=== PATIENT | female | born 1980 | race Caucasian/White ===

== ENCOUNTER 2023-04-20 12:35 | Emergency (ER) | payer MEDICAID, SELFPAY ==
[2023-04-20 12:45] VITALS: BP 128/92; PULSE 123; RESP 20; TEMP 36.7; O2SAT 97; BMI 29.5
--- NOTE | 2023-04-20 13:09 | ED.NAVMDI1 ---
HPI - Nausea/Vomiting/Diarrhea General Chief complaint: Nausea/Vomiting/Diarrhea Stated complaint: NAUSEA/THROWING UP SINCE APPROX. 6 AM/STOMACH PAIN Time Seen by Provider: 04/20/23 12:58 Source: patient Mode of arrival: walk-in Limitations: no limitations History of Present Illness HPI Narrative: Patient is a 42-year-old female who presents to the Emergency Room with concerns of nausea and vomiting. Patient states she feels she gets this way after she drinks [place]. Patient admits to history of marijuana abuse and is had hyperemesis from marijuana use in the past and she is trying to cut back. She denies any bad food. Denies any fevers. States she awoke at 6 AM with nausea vomiting and a few bouts of diarrhea. She denies any fevers or chills. She has had prior hysterectomy. She denies dysuria. Patient states she last had similar symptoms about three years ago. Patient appears nauseous, actively vomiting into an emesis basin. MD elicited complaint: Reports nausea, vomiting, diarrhea and abdominal pain Related Data Allergies Allergy/AdvReac Type Severity Reaction Status Date / Time No Known Drug Allergies Allergy Verified 04/20/23 12:44 Review of Systems ROS Constitutional Denies: fever or chills Eyes Denies: change in vision Ears, nose, mouth, and throat Denies: throat pain Cardiovascular Denies: chest pain or palpitations Respiratory Denies: shortness of breath, cough or wheezing Gastrointestinal Reports: abdominal pain, nausea, vomiting and diarrhea Genitourinary Denies: painful urination or urinary frequency Integumentary/Breast Denies: rash Neurological Denies: headache PFSH PFSH Social History Smoking status: Former smoker Exam Narrative Exam Narrative: Nurses notes and vital signs reviewed and patient is not hypoxic. General: The patient appears uncomfortable sitting up with active dry heaves, minimal green emesis noted, no evidence of coffee grounds or blood Skin: Warm, dry, no pallor noted. Head: Normocephalic, atraumatic Neck: Supple, trachea mid-line, no tenderness, no lymphadenopathy Eye: Pupils are equal, round and reactive to light, EOMI Ears, Nose, Mouth, and Throat: TM are clear, normal light reflex, oral mucosa is moist, no posterior oropharynx erythema or hypertrophy, uvula is mid-line Cardiovascular: Regular Rate and Rhythm Respiratory: Patient is in no distress, no accessory muscle use, lungs are clear to auscultation, no wheezing, rales or rhonchi. Chest Wall: no tenderness Back: non-tender, no CVA tenderness Musculoskeletal: normal ROM, no tenderness, no swelling GI: Normal bowel sounds, no tenderness to palpation, generalized soreness but no focal tenderness on deep palpation. No masses appreciated. No rebound, guarding, or rigidity noted. Neurological: A&O x4 Psychiatric: Cooperative Constitutional Vital Signs, click to edit/add: Last Vital Signs Temp 98.8 F 04/20/23 15:05 Pulse 97 H 04/20/23 15:05 Resp 16 04/20/23 15:05 BP 129/73 04/20/23 15:05 Pulse Ox 97 04/20/23 12:45 O2 Del Method Room Air 04/20/23 13:38 Course Vital Signs Vital signs: Vital Signs Temperature 98.1 F 04/20/23 12:45 Pulse Rate 123 H 04/20/23 12:45 Respiratory Rate 20 04/20/23 12:45 Blood Pressure 128/92 H 04/20/23 12:45 Pulse Oximetry 97 04/20/23 12:45 Temperature 98.8 F 04/20/23 15:05 Pulse Rate 97 H 04/20/23 15:05 Respiratory Rate 16 04/20/23 15:05 Blood Pressure 129/73 04/20/23 15:05 Pulse Oximetry 97 04/20/23 12:45 Oxygen Delivery Method Room Air 04/20/23 13:38 MDM - Nausea/Vomiting/Diarrhea MDM Narrative Medical decision making narrative: Patient presents with acute onset nausea vomiting and diarrhea. Denies any one else ill in her home. Admit she has had similar symptoms with marijuana abuse in the past but has been cutting back and last smoked two days ago. She denies any other drug use or alcohol abuse. Patient denies fevers or chills. Patient agreeable to IV fluids, laboratory studies and medications for her symptoms. She is given Phenergan 25 mg IM and 4 mg IV Zofran. 2.5 mg IV Haldol. Zofran was switched to 8 milligrams by mouth. Multiple attempts for peripheral IV started unsuccessful, patient had 18-gauge placed by myself under ultrasound guidance in the right distal humerus. Patient admits to being a fire once Emergency Room earlier today but left after seen multiple patients Kobak before her with similar appearing symptoms. When we called the facility they reported nine visits to the Emergency Room for same symptoms within the past month. Patient admits to this at bedside stating that held all has helped her symptoms in the past. He admits previous admission was for hypokalemia from repetitive vomiting. Patient reevaluated, discussed laboratory studies, slight elevation of lactate and white blood cell count. Discussed leukocytosis likely with repetitive nausea and vomiting. Abdomen nonsurgical. Patient states she is scheduled to see a gastrointestinal specialist in June, she will contact her PCP to discuss moving up this appointment given her multiple Emergency Room visits. Patient admits to feeling better and has not vomited but is requesting additional dose of Haldol prior to discharge. Patient states she has Phenergan and Compazine at home and verbalized that she needs to stop smoking marijuana for her symptoms to improve. We discussed that she may have other pathology based on her CT scan and the need for definitive gastrointestinal evaluation was discussed. Patient agrees to return to the Emergency Room if symptoms worsen or new symptoms develop. Patient verbalized understanding she's had multiple Emergency Room visits occasionally with electrolyte imbalances and this is of concern regarding her recurrent situation. Patient was monitored on the bus monitor with Haldol use. With IV fluid bolus. 97bpm The patient is to followup with primary care physician in next 2-3 days or to return to the emergency department should any of the signs or symptoms worsen or new symptoms develop. Patient had questions answered. The patient agrees with the following Diagnosis and Treatment plan and the patient will be discharged home. Medical Records Medical records narrative: Reviewed [facility] once Emergency Room visit laboratory studies from 04/18/23. Patient has stool cultures pending, CT abdomen and pelvis from shows wall thickening of the entire colon with fatty infiltrative changes in the wall, consider chronic inflammatory changes. May consider component of mild colitis versus underdistention. Colonic diverticulosis without diverticulitis. Small stable hepatic hypodensities noted as tiny cyst. Patient has documented follow-up to gastrointestinal specialist. Lab Data Labs: Lab Results 04/20/23 Range/Units 13:38 WBC 13.0 H (4.0-11.0) 10^3/uL RBC 4.85 (4.20-5.40) 10^6/uL Hgb 14.4 (12.0-16.0) g/dL Hct 42.9 (36.0-48.0) % MCV 88.5 (81.0-99.0) fL MCH 29.7 (26.7-34.0) pg MCHC 33.6 (29.9-35.2) g/dL RDW 13.5 (11.0-15.0) % Plt Count 281 (150-450) 10^3/uL MPV 11.1 (9.5-13.5) fL Neut % (Auto) 93.1 H (43.0-75.0) % Lymph % (Auto) 4.1 L (20.5-60.0) % [place] % (Auto) 2.2 (1.7-12.0) % Eos % (Auto) 0.0 L (0.9-7.0) % Baso % (Auto) 0.2 (0.2-2.0) % Neut # (Auto) 12.1 H (1.4-6.5) 10^3/uL Lymph # (Auto) 0.5 L (1.2-3.8) 10^3/uL [place] # (Auto) 0.3 (0.3-0.8) 10^3/uL Eos # (Auto) 0.0 (0.0-0.7) 10^3/uL Baso # (Auto) 0.0 (0.0-0.1) 10^3/uL Abs Immat Gran (auto) 0.05 H (0.00-0.03) 10^3/uL Imm/Tot Granulo (auto) 0.4 (0.0-0.5) % Sodium 138 (136-145) mmol/L Potassium 3.6 (3.5-5.1) mmol/L Chloride 103 (98-107) mmol/L Carbon Dioxide 21.7 (21.0-32.0) mmol/L Anion Gap 16.9 BUN 5.0 L (7.0-18.0) mg/dL Creatinine 0.83 (0.55-1.02) mg/dL Est GFR ( Amer) >60 (>=60) Est GFR (Non-Af Amer) >60 (>=60) BUN/Creatinine Ratio 6.0 Glucose 137 H (74-106) mg/dL Lactate 2.3 H* (0.4-2.0) mmol/L Calcium 9.5 (8.5-10.1) mg/dL Total Bilirubin 1.1 H (0.2-1.0) mg/dL AST 26 (15-37) U/L ALT 42 (14-59) U/L Alkaline Phosphatase 104 (46-116) U/L Total Protein 7.5 (6.4-8.2) g/dL Albumin 4.1 (3.4-5.0) g/dL Globulin 3.4 g/dL Albumin/Globulin Ratio 1.2 Lipase 57.0 L (73.0-393.0) U/L Imaging Data Chest x-ray: Radiologist's impression: BLANCA SOLIS MRN: [facility]:[id number] date: 1980 Sex: F Assigned Patient Location: ER Current Patient Location: ER Accession/Order Number: [id number] Exam Date: 04/20/2023 14:10 Report Date: 04/20/2023 14:56 At the request of: TERRANCE JAMES Procedure: XR chest 1V EXAMINATION: XR chest 1V HISTORY: n/v COMPARISON: No relevant comparison available. TECHNIQUE: AP portable FINDINGS: LUNGS: No significant pulmonary parenchymal abnormalities. VASCULATURE: No increased pulmonary vasculature. PLEURA: No pneumothorax, effusion, or pleural thickening. CARDIAC: No cardiomegaly or cardiac silhouette abnormality. MEDIASTINUM: No visible mass or adenopathy. BONES: No fracture or visible bone lesion. OTHER: Negative. XR/XR chest 1V IMPRESSION: No acute disease. Electronically authenticated by: FLACO SALAS Date: 04/20/2023 14:56 ECG Data Interpretation: EKG interpretation: Emergency Department physician interpretation, normal sinus rhythm 77bpm , no ectopy, no ST segment elevation, normal axis. Smoking Cessation Time spent discussing smoking cessation with patient: more than 10 minutes Patient Acknowledges Need for Cessation: Yes Additional Comments: Patient uses marijuana to cope with her fibromyalgia Discharge Plan Discharge Chief Complaint: Nausea/Vomiting/Diarrhea Clinical Impression: Nausea & vomiting Time of Disposition Decision: 15:32 Condition: Good Instructions: Acute Nausea and Vomiting (DC), Cannabis Use Disorder (ED) Additional Instructions: Contact family health services, speak with your PCP recommend recheck in 2-3 days and discuss attempt to move up gastrointestinal specialist appointment in [place]. Stand Alone Forms: Portal Instructions Referrals: Physician,Non-Staff, MD [Primary Care Provider] - 1 week
[2023-04-20] MEDS: ONDANSETRON 4 MG RAPDIS TABLET 8 MG SL (13:42)
[2023-04-20] MEDS: HYOSCYAMINE SULFATE 0.125 MG TAB.SUBL SL (13:42)
[2023-04-20] MEDS: PROMETHAZINE HCL 25 MG/ML VIAL IM (13:43)
[2023-04-20 13:49] LABS: Basophils Percent Auto 0.2 % (0.2-2.0); Hematocrit 42.9 % (36.0-48.0); Hemoglobin 14.4 g/dL (12.0-16.0); Immature Granulocytes Abs Auto 0.05 10^3/uL (0.00-0.03); Immature Granulocytes Pct Auto 0.4 % (0.0-0.5); Lymphocytes Absolute Auto 0.5 10^3/uL (1.2-3.8); Lymphocytes Percent Auto 4.1 % (20.5-60.0); Mean Corpuscular HGB Conc 33.6 g/dL (29.9-35.2); Mean Corpuscular Hemoglobin 29.7 pg (26.7-34.0); Mean Corpuscular Volume 88.5 fL (81.0-99.0); Mean Platelet Volume 11.1 fL (9.5-13.5); Monocytes Absolute Auto 0.3 10^3/uL (0.3-0.8); Monocytes Percent Auto 2.2 % (1.7-12.0); Neutrophils Absolute Auto 12.1 10^3/uL (1.4-6.5); Neutrophils Percent Auto 93.1 % (43.0-75.0); Platelet Count 281 10^3/uL (150-450); Red Blood Count 4.85 10^6/uL (4.20-5.40); Red Cell Distribution Width 13.5 % (11.0-15.0)
[2023-04-20 14:06] LABS: Alanine Aminotransferase 42 U/L (14-59); Albumin Globulin Ratio 1.2; Albumin Level 4.1 g/dL (3.4-5.0); Alkaline Phosphatase 104 U/L (46-116); Anion Gap 16.9; Aspartate Amino Transferase 26 U/L (15-37); Bilirubin Total 1.1 mg/dL (0.2-1.0); Calcium 9.5 mg/dL (8.5-10.1); Carbon Dioxide 21.7 mmol/L (21.0-32.0); Chloride 103 mmol/L (98-107); Estimated GFR (African America >60 (>=60); Estimated GFR (Non-African Ame >60 (>=60); Globulin 3.4 g/dL; Glucose 137 mg/dL (74-106); Potassium 3.6 mmol/L (3.5-5.1); Sodium 138 mmol/L (136-145); Total Protein 7.5 g/dL (6.4-8.2)
--- NOTE | 2023-04-20 14:07 | ECG_ITS ---
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
--- NOTE | 2023-04-20 14:07 | XR_ITS ---
The [address] [address] Patient Name: BLANCA SOLIS MRN: [id number] date: 1980 Sex: F Assigned Patient Location: ER Current Patient Location: ER Accession/Order Number: [id number] Exam Date: 04/20/2023 14:10 Report Date: 04/20/2023 14:56 At the request of: TERRANCE JAMES Procedure: XR chest 1V EXAMINATION: XR chest 1V HISTORY: n/v COMPARISON: No relevant comparison available. TECHNIQUE: AP portable FINDINGS: LUNGS: No significant pulmonary parenchymal abnormalities. VASCULATURE: No increased pulmonary vasculature. PLEURA: No pneumothorax, effusion, or pleural thickening. CARDIAC: No cardiomegaly or cardiac silhouette abnormality. MEDIASTINUM: No visible mass or adenopathy. BONES: No fracture or visible bone lesion. OTHER: Negative. XR/XR chest 1V IMPRESSION: No acute disease. Electronically authenticated by: FLACO SALAS Date: 04/20/2023 14:56
[2023-04-20 14:12] LABS: Lactate/Lactic Acid 2.3 mmol/L (0.4-2.0)
[2023-04-20] MEDS: HALOPERIDOL LACTATE 5 MG/ML VIAL 2.5 MG IV ×2 (14:24→15:45)
[2023-04-20] MEDS: FAMOTIDINE/PF 20 MG/2 ML VIAL IV (14:24)
[2023-04-20] MEDS: 0.9 % SODIUM CHLORIDE 1,000 ML 999 ML IV (14:25)
[2023-04-20 14:39] VITALS: BP 139/86; PULSE 110; RESP 18
[2023-04-20 14:57] VITALS: BP 139/86; PULSE 108; RESP 12
[2023-04-20 15:05] VITALS: BP 129/73; PULSE 97; RESP 16; TEMP 37.1
[2023-04-20 15:57] VITALS: BP 128/78; PULSE 96; RESP 16
== END 2023-04-20 16:00 | disposition home or self-care (01) ==
PROVIDERS: Personal Emergency Response Attendant; Emergency Provider Emergency Medicine Emergency Medical Services
DX: R11.2 Nausea with vomiting, unspecified (principal); Z87.891 Personal history of nicotine dependence
CPT/HCPCS: 36415; 71045; 80053; 83605; 83690; 85025; 93005; 96361; 96374; 96375; 96376; 99285